=== PATIENT | male | born 2000 | race Caucasian/White ===

== ENCOUNTER 2023-02-07 19:51 | Emergency (ER) | payer MEDICAID ==
[~2023-02-07] VITALS: Ht 193 cm; Wt 64.8 kg
[2023-02-07 19:55] VITALS: BP 139/76; PULSE 96; RESP 17; TEMP 98.8; O2SAT 97
== END 2023-02-08 03:00 | disposition left against medical advice (07) ==
LOC: ER 19:52
DX: S61.211A Laceration without foreign body of left index finger without damage to nail, initial encounter (principal); W26.0XXA Contact with knife, initial encounter; Y93.89 Activity, other specified; Y92.89 Other specified places as the place of occurrence of the external cause; Y99.8 Other external cause status
CPT/HCPCS: 99281

== ENCOUNTER 2023-02-10 08:43 | Emergency (ER) | payer MEDICAID ==
[~2023-02-10] VITALS: Ht 193 cm; Wt 66.1 kg
[2023-02-10 08:44] VITALS: BP 144/93; PULSE 102; RESP 16; TEMP 98.1; O2SAT 100
== END 2023-02-10 09:55 | disposition home or self-care (01) ==
LOC: ER 08:44
DX: S61.211D Laceration without foreign body of left index finger without damage to nail, subsequent encounter (principal); W45.8XXD Other foreign body or object entering through skin, subsequent encounter
CPT/HCPCS: 29130; 99283